=== PATIENT | female | born 1940 | race Caucasian/White ===

== ENCOUNTER 2018-08-22 11:40 | Inpatient (IN) ==
[2018-08-22 12:22] LABS: BASO# 0.02 X1000 (0.0-0.2); BASO% 0.2 % (0.0-0.8); EOS# 0.06 X1000 (0.0-0.7); EOS% 0.5 % (0.0-10.0); HEMATOCRIT 47.6 % (37.0-47.0); HEMOGLOBIN 15.9 g/dL (12.0-16.0); IMM GRAN# 0.03 X1000 (0.0-0.04); IMM GRAN% 0.2 % (0.0-0.5); LYMPH# 1.49 X1000 (1.2-3.4); LYMPH% 11.3 % (20.5-51.1); MCH 29.6 PG (27-31); MCHC 33.4 g/dL (33-37); MCV 88.6 FL (81-99); MONO# 1.26 X1000 (0.11-0.59); MONO% 9.6 % (1.7-9.3); MPV 10.4 FL (7.4-10.4); NEUT# 10.27 X1000 (1.4-6.5); NEUT% 78.2 % (42.2-75.2); PLT 211 X1000 (130-400); RBC 5.37 XMIL (4.2-5.4); RDW 13.8 % (11.5-14.5); WBC 13.13 X1000 (4.8-10.8)
[2018-08-22 12:37] LABS: URINE SOURCE VOIDED
[2018-08-22 12:44] LABS: AGAP 13; ALB/GLOB RATIO 1.1; ALBUMIN 3.9 g/dL (3.5-5.0); ALKALINE PHOSPHATASE 101 U/L (32-104); BUN 20 mg/dL (8-22); CHLORIDE 101 mmol/L (98-107); COSMO 281; CREATININE 0.8 mg/dL (0.5-0.9); ESTIMATED GFR > 60; GLUCOSE 105 mg/dL (70-104); GOT 23 U/L (10-30); GPT 15 U/L (10-36); LIPASE 22 U/L (13-60); POTASSIUM 4.2 mmol/L (3.5-5.1); SODIUM 139 mmol/L (136-145); TCO2 25 mmol/L (25-35); TOTAL BILIRUBIN 0.83 mg/dL (0.20-1.00); TOTAL PROTEIN 7.6 g/dL (6.3-8.3)
[2018-08-22 12:49] LABS: BILIRUBIN URINE NEGATIVE (NEGATIVE); BLOOD URINE TRACE (NEGATIVE); COLOR YELLOW; GLUCOSE URINE NEGATIVE (NEGATIVE); KETONE URINE NEGATIVE (NEGATIVE); LEUKOCYTES URINE NEGATIVE (NEGATIVE); NITRITE URINE NEGATIVE (NEGATIVE); PROTEIN URINE NEGATIVE (NEGATIVE); SP GRAVITY URINE 1.022; TURBIDITY URINE CLEAR (CLEAR); UROBILINOGEN URINE NORMAL (NORMAL)
[2018-08-22 13:08] LABS: INR 0.95; PROTIME 13.4 Seconds (11.0-16.0)
[2018-08-22 13:09] LABS: PTT 38.1 Seconds (22.3-41.8)
[2018-08-22 13:22] LABS: UR EPITHELIAL CELLS <10 /HPF (<10); URINE BACTERIA NEGATIVE /HPF; URINE RBC <10 /HPF (<10); URINE WBC <10 /HPF (<10)
[2018-08-22 13:39] LABS: URINE YEAST PRESENT
--- NOTE | 2018-08-22 13:42 | Diag Imaging Result Doc PS360 ---
CHEST-1 VIEW - 08/22/2018 INDICATION: sepsis protocol COMPARISON: 06/20/2014 FINDINGS: Lung volumes are much lower. No focal infiltrates, pneumothorax, or pleural effusion. Heart size is normal. IMPRESSION: Low lung volumes. Electronically signed by Mynor Figueroa 08/22/2018 1:40 PM
--- NOTE | 2018-08-22 13:49 | Diag Imaging Result Doc PS360 ---
EXAM: CT ABD/PELVIS W/IV CONT ONLY INDICATION: abdominal pain TECHNIQUE: This exam was performed using automated exposure control, adjustment of mA or kV according to patient size, and/or use of iterative reconstruction technique. COMPARISON: None. FINDINGS: There is mild subsegmental atelectasis at the lung bases. There has been a prior cholecystectomy. The liver, spleen, pancreas, and adrenal glands are grossly unremarkable. There are a few parapelvic renal cysts on the left. The kidneys are unremarkable, otherwise. The urinary bladder is unremarkable. There has been a prior hysterectomy. There is extensive sigmoid colonic diverticulosis and there is focal wall thickening with surrounding inflammatory changes associated with the proximal sigmoid colon emanating from a prominent diverticulum consistent with acute diverticulitis. There is no free abdominal gas or pericolonic abscess to indicate perforation. There is a prominent hiatal hernia. The remainder of the GI tract is unremarkable. IMPRESSION: Sigmoid colonic diverticulitis as described with no evidence of perforation. Electronically signed by Godfrey Dos Santos 08/22/2018 1:47 PM
--- NOTE | 2018-08-22 14:40 | PROVIDER DOCUMENTATION ---
This chart was entered by Liv Vega Scribe, acting as scribe for Terrence Chambers MD. HPI-Abdominal Pain/GI Problem - General Chief Complaint: Abdominal Pain Stated Complaint: ABDOMINAL CRAMPING Time Seen by Provider: 08/22/18 12:17 Source: patient, family () Allergies/Adverse Reactions: Patient Allergies Allergy/AdvReac Type Severity Reaction Status Date / Time codeine Allergy NAUSEA/VOMI Verified 08/22/18 12:10 TING Home Medications: Home Medication List Medication Instructions Recorded Confirmed Last Taken Type Levothyroxine [Synthroid] 11/20/13 06/20/14 11/19/13 History Olmesartan Medoxomil [Benicar] 11/20/13 06/20/14 11/20/13 History ROSUVAstatin [Crestor] 10 mg PO QHS 11/20/13 06/20/14 11/19/13 History Tramadol [Ultram] 50 mg PO Q6H PRN PRN #20 tablet 11/20/13 06/20/14 Unknown Rx Albuterol [Albuterol Neb] 06/20/14 06/20/14 Unknown History Atorvastatin Calcium [Lipitor] 10 mg PO 06/20/14 06/20/14 Unknown History Brompheniram/Phenylephrine/Dm 5 ml PO 4XDAY PRN PRN #2 solution 06/20/14 Unknown Rx [Rynex Dm Liquid] Fluconazole [Diflucan] 150 mg PO DAILY #5 tablet 06/20/14 Unknown Rx Ketoconazole 2% Cream [Nizoral 2% 1 applicatn TOP BID #1 tube 06/20/14 Unknown Rx Cream] - History of Present Illness-ABD Nature of Presenting Problems: 77 yowf presents to the ed via pov by . pt c/o intermittent abdominal cramping onset last evening. pt on exam denies any pain at that time. is at bedside and pt smells strongly of urine. pt sts she has frequent UTI Abdominal Pain Onset Location: reports: periumbilical Pain Radiation: reports: no radiation Quality of Pain: reports: aching, cramping Severity in ED: reports: moderate Onset/Duration: reports: last night Timing: reports: gone now, intermittent Activities at Onset: reports: light activity Exposure to sick contacts?: No Modifying Factors: improves with: nothing. worse with: palpation Associated Symptoms: reports: diarrhea. denies: arm pain, back/neck pain, chest pain, cough, fever/chills, nausea, shortness of breath, vomiting Last BM: last night Dark Stools Present?: reports: none noticed Rectal Bleeding: reports: none # of Diarrhea Episodes: 2 Rectal Pain: reports: none # of Vomiting Episodes: 0 Emesis Description: reports: none Bruising or Bleeding Gums?: No Similar Symptoms Previously?: Yes (UTI) Recently seen or treated by another doctor?: No Review of Systems - Adult - REVIEW OF SYSTEMS - ADULT Constitutional: denies: chills, fever Eyes: reports: no symptoms reported Ears, Nose, Mouth & Throat: reports: no symptoms reported Cardiovascular: denies: chest pain, palpitations Respiratory: denies: cough, shortness of breath, wheezing Gastrointestinal: reports: see HPI, abdominal pain, diarrhea. denies: nausea, vomiting Genitourinary: reports: see HPI, frequent UTI's, other (strong urine smell) Musculoskeletal: denies: back pain, neck pain Integumentary: reports: no symptoms reported Neurological: reports: no symptoms reported Psychiatric: reports: no symptoms reported Endocrine: reports: no symptoms reported Hematologic/Lymphatic: reports: no symptoms reported Allergic/Immunologic: reports: no symptoms reported All Other Systems: Reviewed and Negative Past History - Adult - PAST MEDICAL HISTORY-ADULT Review of Records: reports: Old Records Reviewed, Nursing Assessment Review, Medications Reviewed, Social history reviewed & non-contributory. Major Childhood Illnesses: reports: denies history Cardiovascular: reports: HTN, hyperlipidemia Respiratory: reports: denies history Gastrointestinal: reports: denies history Obstetrical/Gynecological: reports: denies history Genitourinary: reports: chronic UTI's Musculoskeletal: reports: arthritis, chronic pain Hand Dominance: Right Handed Neurological: reports: dementia Psychiatric: reports: denies history Endocrine/Immune: reports: thyroid disorder Other Conditions: reports: denies history - PRIOR SURGERIES/PROCEDURES Surgical/Procedure History: reports: cholecystectomy, hysterectomy, orthopedic (extremity) - IMMUNIZATION STATUS Childhood Immunizations: See Nurse Assessment Flu Vaccine: See Nurse Assessment - FAMILY HISTORY Family History: reviewed, not pertinent - SOCIAL HISTORY Smoking: non-smoker Substance Use: denies Alcohol Use Frequency: never Living Situation: family Physical Exam-General - PHYSICAL EXAM-ADULT Initial Vital Signs Reviewed: Yes - CONSTITUTIONAL General Appearance: alert, no apparent distress (pt denies pain on exam but winces with deep palpation of midabdomen), obese - EYES Eyes: PERRL/EOMI, pink conjunctivae - HEAD, EARS, NOSE, MOUTH & THROAT HENMT: moist mucous membranes, normal ENT inspection - NECK Neck: non-tender, full range of motion, supple, normal inspection - RESPIRATORY Respiratory: chest non-tender, lungs clear, normal breath sounds - CARDIOVASCULAR Cardiovascular: normal peripheral pulses, regular rate, rhythm - GASTROINTESTINAL (ABDOMEN) Abdominal Exam: normal bowel sounds, soft, tenderness (midabdominal tenderness with deep palpation) - LYMPHATIC Lymphatic: no adenopathy - MUSCULOSKELETAL Back Exam: normal inspection Extremity: no pedal edema, no calf tenderness, normal capillary refill, pelvis stable - SKIN Integumentary: normal color, normal turgor, warm/dry - NEUROLOGIC Neurologic: grossly normal - PSYCHIATRIC Psych/Mental Status: normal mood/affect, normal thought content, normal thought process Progress - PLAN OF CARE/RESULTS Progress/Plan/Lab Results: Vital Signs - 8 hr 08/22/18 11:44 Pulse Rate 95 H Respiratory Rate 18 Blood Pressure 123/83 Laboratory Results - last 24 hr 08/22/18 11:56 WBC 13.13 H RBC 5.37 Hgb 15.9 Hct 47.6 H MCV 88.6 MCH 29.6 MCHC 33.4 RDW Std Deviation 13.8 Plt Count 211 MPV 10.4 Immature Gran % (Auto) 0.2 Neut % (Auto) 78.2 H Lymph % (Auto) 11.3 L [place] % (Auto) 9.6 H Eos % (Auto) 0.5 Baso % (Auto) 0.2 Immature Gran # (Auto) 0.03 Neut # (Auto) 10.27 H Lymph # (Auto) 1.49 [place] # (Auto) 1.26 H Eos # (Auto) 0.06 Baso # (Auto) 0.02 Orders Category Date Time Status NPO Diet 08/22/18 11:50 Active CBC WITH DIFF [HEME] Stat Lab 08/22/18 11:56 Completed COMPREHENSIVE METABOLIC PANEL [CHEM] Stat Lab 08/22/18 11:56 Received LIPASE [CHEM] Stat Lab 08/22/18 11:56 Received URINALYSIS [URINALYSIS] Stat Lab 08/22/18 11:50 Uncollected Abd Pain/OB <20 weeks Stat Oth 08/22/18 11:49 Ordered Result Diagrams: 08/22/18 11:56 08/22/18 11:56 - REASSESSMENT Reassessment #1 Time Reassessed: 13:01 Status: improving Reassessment Comment: dr chambers at bedside Reassessment #2 Time Reassessed: 14:37 Status: unchanged Reassessment Comment: dr chambers at bedside speaking with pt about poc - XRAY 1 XRAY: Bilateral XRAY Study: Chest Impression: See EMR Report (CHEST-1 VIEW - 08/22/2018 INDICATION: sepsis protocol COMPARISON: 06/20/2014 FINDINGS: Lung volumes are much lower. No focal infiltrates, pneumothorax, or pleural effusion. Heart size is normal. IMPRESSION: Low lung volumes. Electronically signed by Mynor Figueroa 08/22 1:40 PM 08/22/18 1340 Interpreting Physician: Mynor Figueroa MD Dictated Date/Time: 08/22/18 1334 cc: Terrence Chambers MD; Lisa Garsia MD) - CT/MRI 1 CT Study: Abdomen, Pelvis Impression: See EMR Report (EXAM: CT ABD/PELVIS W/IV CONT ONLY INDICATION: abdominal pain TECHNIQUE: This exam was performed using automated exposure control, adjustment of mA or kV according to patient size, and/or use of iterative reconstruction technique. COMPARISON: None. FINDINGS: There is mild subsegmental atelectasis at the lung bases. There has been a prior cholecystectomy. The liver, spleen, pancreas, and adrenal glands are grossly unremarkable. There are a few parapelvic renal cysts on the left. The kidneys are unremarkable, otherwise. The urinary bladder is unremarkable. There has been a prior hysterectomy. There is extensive sigmoid colonic diverticulosis and there is focal wall thickening with surrounding inflammatory changes associated with the proximal sigmoid colon emanating from a prominent diverticulum consistent with acute diverticulitis. There is no free abdominal gas or kurt lonic abscess to indicate perforation. There is a prominent hiatal hernia. The remainder of the GI tract is unremarkable. IMPRESSION: Sigmoid colonic diverticulitis as described with no evidence of perforation. Electronically signed by Godfrey Dos Santos 08/22/2018 1:47 PM 08/22/18 1347 Interpreting Physician: Godfrey Dos Santos MD Dictated Date/Time: 08/22/18 1336 cc: Terrence Chambers MD; Lisa Garsia MD) - CONSULTS/PCP/HOSPITALIST Notification #1 *Consult/PCP/Hospitalist*: hospitalist dr [place]ura Time Discussed: 14:42 (spoke with reuben FOLEY with hospitalist service) Consult Disposition: Admit Departure - Departure Date of Disposition Decision: 08/22/18 Time of Disposition Decision: 14:37 DIAGNOSIS: Acute diverticulitis Disposition: ADMITTED INPATIENT 09 Certified Medical Emergency: Emergent Condition: Stable Additional Freetext Instructions: ED Follow Up Instructions: You have been treated by a care provider in the Emergency Department. These instructions are being provided to you so you can have an understanding of how to care for yourself upon discharge. Upon discharge from the Emergency Department, you are responsible for making arrangements for follow-up care by a physician of your choice. Take all prescribed medications as directed. Return to the Emergency Department immediately for any new or worsening symptoms. You may call the Physician Referral phone number at [phone] to obtain a list of Physicians who are taking new patients. Referrals and Follow-Ups: Lisa Garsia MD [Primary Care Provider] - - Critical Care Note This patient required my direct & personal management of CC.: Yes Total Time (mins): 35 Critical Care Statement: This patient required my direct personal management to treat or rule out processes, the absence of which, could potentiallly result in sudden, clinically significant life or limb threatening deterioration. Attestation - Physician/ MELISSA Attestation Patient care was provided by Advanced Practice Provider:: No The physician spent face to face time with patient:: Yes Advanced Practice Provider documentation review:: Supervising physician onsite and consulted in the evaluation and care of this patient. The physician did have a face to face encounter with the patient. This chart was documented by the indicated scribe, (Liv Vega Scribe) and accurately reflects the services I performed and decisions made by me, Terrence Chambers MD, as attested by the provider's signature.
[2018-08-22] MEDS ORDERED: NS 1,000 ML IV ONE (15:04)
[2018-08-22] MEDS: PROTONIX IV SCH (15:20)
[2018-08-22] MEDS: FLAGYL 500 MG/NS 500 MG/100 ML IVPB IV SCH ×2 (15:25→21:44)
[2018-08-22] MEDS ORDERED: MORPHINE IV PRN (15:36)
--- NOTE | 2018-08-22 16:05 | HISTORY AND PHYSICAL ---
PRIMARY CARE PROVIDER: Lisa Garsia MD CHIEF COMPLAINT: Abdominal pain. HISTORY OF PRESENT ILLNESS: Ms. Florez is a 77-year-old female with a medical history of hypertension and probable dementia who presents with acute abdominal pain that began last night. She is a poor historian, her at the bedside is also a poor historian but apparently she started having left lower quadrant pain last night which was nonradiating and constant, sharp in nature. This has not been associated with fever, chills, nausea, vomiting, or diarrhea. She came to the E.R. this morning for evaluation. She was noted to have a white count of 13,000. Chemistry was unremarkable. CT of the abdomen and pelvis revealed a focal sigmoid colonic diverticulitis with no evidence of perforation. Her vital signs are stable. She will be admitted for further treatment and evaluation. PAST MEDICAL HISTORY: 1. Hypertension. 2. Hypothyroidism. 3. Hyperlipidemia. SURGICAL HISTORY: Cholecystectomy, hysterectomy, right knee replacement, and foot surgery. SOCIAL HISTORY: No tobacco, alcohol, or drug use. She is . Her is at the bedside. FAMILY HISTORY: Noncontributory. REVIEW OF SYSTEMS: A 14 point review of systems was obtained and found to be negative with the exception of the HPI. ALLERGIES: Codeine. HOME MEDICATIONS: Her home medications are yet to be compiled. PHYSICAL EXAMINATION: VITAL SIGNS: Blood pressure is 141/73, heart rate 75, respiratory rate 16, O2 sat 97% on room air, and temperature 97.5. GENERAL: Elderly and obese female lying in a hospital bed in no acute distress. NEUROLOGIC: She is awake and alert, however, she is disoriented to time and place. She follows commands without focal deficits. HEENT: The head is atraumatic and normocephalic. Her pupils are equal, round, and reactive to light. Oral mucosa is dry. NECK: Trachea is midline. There is no JVD. CHEST: Clear to auscultation. CV: Regular rate and rhythm. S1, S2 is noted. There are no murmurs. GI: Soft and nondistended. Focal left lower quadrant tenderness. Bowel sounds are active. EXTREMITIES: Without edema, clubbing, or cyanosis. Pulses are 1+ bilaterally. DIAGNOSTIC DATA: CT abdomen and pelvis shows sigmoid colonic diverticulitis. WBC is 13.13, hemoglobin 15.9, hematocrit 47.6, and platelet count 211. INR is 0.95. Sodium is 139, potassium 4.2, chloride 101, CO2 25, anion gap 13, BUN 20, creatinine 0.8, and glucose 105. LFTs were all normal. Troponin negative. Lactic acid is 0.8. UA is negative. ASSESSMENT AND PLAN: 1. Acute sigmoid diverticulitis: Continue IV antibiotics and IV fluids. There are no signs of perforation or systemic inflammation. If symptomatically improved in the next 24 to 48 hours she can likely go home and follow up with Gastroenterology on an outpatient basis. However, if there is any worsening, we will consult Gastroenterology while she is here. We will keep her p.o. intake light. 2. Hypertension: We will hold her medications just for a bit until she is slightly more hydrated. 3. Hypothyroidism: We will check thyroid function and continue her Synthroid once reconciled. 4. Deep vein thrombosis prophylaxis with sequential compression devices. Further recommendations to follow. Dictated by YASH Villarreal for Ronny Quintero MD cc: YASH Villarreal MD I agree with most components of history, physical assessment and plan. A separate addendum has been dictated. [facility]
[2018-08-22] MEDS: CIPRO 400 MG/D5W 400 MG/200 ML IVPB IV SCH (16:44)
--- NOTE | 2018-08-22 18:02 | HISTORY AND PHYSICAL ---
ADDENDUM: I agree with most components of history, assessment, physical, and plan. In brief, the patient is a 77 years old lady who comes in with complaints of 2 days duration of left lower quadrant abdominal pain. She did not have any nausea, vomiting, or stool abnormalities. She tells me that she has been eating peanuts a few times a day. She denies having any EGD or colonoscopy done in the past. In the emergency room, she was found to have leukocytosis, and she was having some abdominal pain so the CAT scan abdominal pelvis suggested acute diverticulitis involving sigmoid colon and so she was admitted for further management. SUBJECTIVE: At the time of my evaluation, patient is feeling significantly better, does not appear to be in any acute distress. She denies any nausea and vomiting. VITAL SIGNS: Suggest she has been afebrile with temperature of 98.5 degrees. She is not tachycardic except on presentation when her heart rate was above 95, currently heart rate of 89. She has been normotensive with blood pressure 120/70. Breathing well, 99% on room air. PHYSICAL EXAMINATION: GENERAL: Not in acute distress. HEENT: Oral cavity is moist. LUNGS: Air entry bilaterally equal. No wheeze, rhonchi or crackles. CARDIOVASCULAR: S1, S2 normal. No murmur or gallop. ABDOMEN: Soft, nontender. Active bowel sounds. EXTREMITIES: No lower extremity edema. LABORATORY DATA: Suggestive of leukocytosis, otherwise it appears unremarkable. MICROBIOLOGY: Blood cultures are in lab. IMAGING: Abdomen and pelvis CT had suggested acute sigmoid diverticulitis. Chest x-ray was unremarkable except low lung volumes. ASSESSMENT: 1. Acute sigmoid diverticulitis. 2. Medication noncompliance. 3. History of hyperlipidemia. 4. History of hypothyroidism. 5. History of suspected dementia, essential hypertension. PLAN: Continue intravenous fluids and intravenous antibiotics. Follow up with blood culture results. Continue physical therapy. Continue clear liquid diet. I anticipate the patient to remain inside the hospital for at least 24 to 48 hours depending on her clinical course. Plan of care was discussed with the patient. All of her questions have been answered. I will try and reach out to who i assume is a surrogate decision maker. cc: Ronny Quintero MD [facility]
[2018-08-22] MEDS: LIPITOR PO SCH (21:44)
[2018-08-22] MEDS: ARICEPT PO SCH (21:44)
[2018-08-23] MEDS: FLAGYL 500 MG/NS 500 MG/100 ML IVPB IV SCH ×4 (03:04→20:06)
[2018-08-23] MEDS: CIPRO 400 MG/D5W 400 MG/200 ML IVPB IV SCH ×2 (04:10→16:46)
[2018-08-23 06:55] LABS: BASO# 0.01 X1000 (0.0-0.2); BASO% 0.1 % (0.0-0.8); EOS# 0.12 X1000 (0.0-0.7); EOS% 1.3 % (0.0-10.0); HEMATOCRIT 44.9 % (37.0-47.0); HEMOGLOBIN 14.9 g/dL (12.0-16.0); IMM GRAN# 0.02 X1000 (0.0-0.04); IMM GRAN% 0.2 % (0.0-0.5); LYMPH# 1.33 X1000 (1.2-3.4); LYMPH% 14.9 % (20.5-51.1); MCH 29.7 PG (27-31); MCHC 33.2 g/dL (33-37); MCV 89.4 FL (81-99); MONO# 0.94 X1000 (0.11-0.59); MONO% 10.5 % (1.7-9.3); NEUT# 6.51 X1000 (1.4-6.5); PLT 185 X1000 (130-400); RBC 5.02 XMIL (4.2-5.4); RDW 13.6 % (11.5-14.5); WBC 8.93 X1000 (4.8-10.8)
[2018-08-23 07:26] LABS: ALBUMIN 3.3 g/dL (3.5-5.0); CALCIUM 9.3 mg/dL (8.8-10.2); MAGNESIUM 1.8 mg/dL (1.5-2.7); POTASSIUM 4.5 mmol/L (3.5-5.1); TOTAL BILIRUBIN 0.94 mg/dL (0.20-1.00); TOTAL PROTEIN 6.6 g/dL (6.3-8.3)
[2018-08-23] MEDS: ASPIRIN PO SCH (08:52)
[2018-08-23] MEDS: SYNTHROID PO SCH (08:52)
[2018-08-23] MEDS: NAMENDA PO SCH (08:52)
[2018-08-23] MEDS ORDERED: COZAAR PO SCH (09:00)
[2018-08-23] MEDS ORDERED: MORPHINE IV PRN (14:15)
--- NOTE | 2018-08-23 14:57 | PROGRESS NOTE ---
DATE: 08/23/2018 INTERVAL HISTORY: No acute event overnight. Patient has been eating some food. She had a bowel movement which looked normal. SUBJECTIVE: Patient is denying chest pain, shortness of breath. She is denying any nausea, vomiting or any more abdominal pain except for mild pain in left lower quadrant. I discussed about advancing her diet, answered all of her questions. Currently vitals temperature 97.6 degrees, pulse 64, respiratory rate 18, blood pressure of 111/47, saturating 100% room air. PHYSICAL EXAMINATION: General: Does not appear in any acute distress. Oral cavity is moist. Air entry bilaterally equal. No wheeze, rhonchi, crackles. S1, S2 normal. No murmur, rub or gallop. Abdomen: Soft, mildly tender in left lower quadrant. No hepatosplenomegaly and active bowel sounds. No lower extremity edema. LABS: Suggestive of resolution of leukocytosis, normal hemoglobin, hematocrit, and platelet count, normal electrolytes, what appears to be elevated creatinine and her TSH was slightly elevated. ASSESSMENT AND PLAN: 1. Acute sigmoid diverticulitis. Continue intravenous metronidazole and ciprofloxacin. 2. Sigmoid diverticulosis actively not bleeding at the moment. Patient was advised to follow up ob gyn as an outpatient and discuss about need for post colitis colonoscopy. 3. History of hypothyroidism, continue home levothyroxine, history of hypertension, continue home losartan. I will decrease the dose considering her blood pressure is a little low. 4. history of Alzheimer's dementia, continue home memantine and donepezil. Her baseline functional status is alert, oriented to place, person and year. She is able to walk using a walker and prepare small meals for herself, though, she does have intermittent memory impairment. 5. Others:, history of hyperlipidemia. Continue home atorvastatin, for abdominal pain continue low dose of morphine as needed. DISPOSITION: The patient remains inside the hospital as I would monitor her for 24 hours until resolution of her abdominal pain and if she is able to tolerate soft diet tomorrow my plan is to discharge her home tomorrow. Plan of care discussed with the patient. The patient's is a surrogate decision maker at bedside, all of their questions have been answered. cc: MD IRENE Baptiste
[2018-08-23] MEDS: SODIUM CHLORIDE 0.9% INJ SCH (16:47)
[2018-08-23] MEDS: PROTONIX IV SCH (16:47)
[2018-08-23] MEDS: LIPITOR PO SCH (20:06)
[2018-08-23] MEDS: ARICEPT PO SCH (20:06)
[2018-08-24] MEDS: CIPRO 400 MG/D5W 400 MG/200 ML IVPB IV SCH ×2 (04:06→17:12)
[2018-08-24] MEDS: FLAGYL 500 MG/NS 500 MG/100 ML IVPB IV SCH ×4 (04:06→19:53)
[2018-08-24 07:13] LABS: BASO# 0.02 X1000 (0.0-0.2); BASO% 0.2 % (0.0-0.8); EOS# 0.11 X1000 (0.0-0.7); EOS% 1.3 % (0.0-10.0); HEMATOCRIT 42.8 % (37.0-47.0); HEMOGLOBIN 14.2 g/dL (12.0-16.0); LYMPH# 1.08 X1000 (1.2-3.4); LYMPH% 12.5 % (20.5-51.1); MCH 29.8 PG (27-31); MCHC 33.2 g/dL (33-37); MCV 89.9 FL (81-99); MONO# 0.82 X1000 (0.11-0.59); MONO% 9.5 % (1.7-9.3); MPV 10.2 FL (7.4-10.4); NEUT# 6.59 X1000 (1.4-6.5); NEUT% 76.5 % (42.2-75.2); PLT 202 X1000 (130-400); RBC 4.76 XMIL (4.2-5.4); RDW 13.6 % (11.5-14.5); WBC 8.62 X1000 (4.8-10.8)
[2018-08-24 07:34] LABS: AGAP 13; ALB/GLOB RATIO 0.9; ALBUMIN 3.1 g/dL (3.5-5.0); ALKALINE PHOSPHATASE 87 U/L (32-104); BUN 14 mg/dL (8-22); CALCIUM 8.8 mg/dL (8.8-10.2); CHLORIDE 105 mmol/L (98-107); COSMO 280; CREATININE 0.8 mg/dL (0.5-0.9); ESTIMATED GFR > 60; GLUCOSE 105 mg/dL (70-104); GOT 15 U/L (10-30); GPT 10 U/L (10-36); SODIUM 140 mmol/L (136-145); TCO2 22 mmol/L (25-35); TOTAL BILIRUBIN 0.53 mg/dL (0.20-1.00); TOTAL PROTEIN 6.5 g/dL (6.3-8.3)
[2018-08-24] MEDS: ASPIRIN PO SCH (09:45)
[2018-08-24] MEDS: NAMENDA PO SCH (09:45)
[2018-08-24] MEDS: COZAAR PO SCH (09:45)
[2018-08-24] MEDS: SYNTHROID PO SCH (09:45)
[2018-08-24] MEDS ORDERED: ZOFRAN IV PRN (09:56)
--- NOTE | 2018-08-24 15:03 | PROGRESS NOTE ---
DATE: 08/24/2018 INTERVAL HISTORY: No acute events overnight. I was informed that the patient had not eaten a lot yesterday. She has not eaten anything since morning. She is complaining of nausea for which Zofran has been ordered. SUBJECTIVE: When I went to the bedside, the patient's is at bedside. I discussed with the patient about her condition and also the fact that her diverticulitis is being treated with intravenous antibiotics and she needs to eat to see if she is progressing well or not. After discussion with the patient and her at bedside, getting an idea about her baseline functional status, I suggested to them that the patient might benefit from going to rehab, and they are in agreement with this idea. I encouraged patient to take oral food as well currently. VITALS: Temperature 98.4, pulse 65, respiratory rate 16, blood pressure 123/47. Saturating 99% on room air. PHYSICAL EXAMINATION: Patient does not appear in any acute distress. Oral cavity is moist.Lungs: Air entry bilaterally equal. No wheeze, rhonchi or crackles. Cardiovascular: S1, S2 normal. No murmur, rub or gallop. Abdomen: Soft, nontender. No hepatosplenomegaly. No active bowel sounds. No lower extremity edema. LABS: Suggestive of no leukocytosis. Normal hemoglobin, hematocrit and platelet count. Normal electrolytes and normal kidney function. ASSESSMENT AND PLAN: 1. Acute sigmoid diverticulitis. Continue intravenous metronidazole and ciprofloxacin. Continue GI soft diet. 2. Sigmoid diverticulosis, not without any signs of anemia. The patient should follow up with [facility] as an outpatient to discuss about need for post colitis colonoscopy. 3. Hypothyroidism. Continue home levothyroxine, continue home losartan for hypertension. Currently, her blood pressure is better controlled on losartan dose. 4. History of Alzheimer's dementia. Continue home memantine and donepezil. The patient, however, does not like her to mention about dementia to other individuals since the patient believes she does not have dementia. However, during my encounter, I have noted she does have intermittent memory impairment. She, though, is alert, oriented to time, oriented to person, oriented to year, but she oftentimes forgets the past events like today she was not able to remember why she was brought to the hospital. 5. Continue home atorvastatin for hyperlipidemia. DISPOSITION: The patient has not been able to come out of bed during this hospital admission. She has become weak. After discussion with patient's and assessing patient's functional status, we decided that she would benefit from rehab. Social work rehab consult has been placed. From there I suggested that the should consider placing patient in a long-term care facility, which he is in agreement with. Plan of care was discussed with her. All of her questions have been answered, with patient and her . cc: Ronny Quintero MD
[2018-08-24] MEDS: PROTONIX IV SCH (15:24)
[2018-08-24] MEDS: ARICEPT PO SCH (20:00)
[2018-08-24] MEDS: LIPITOR PO SCH (20:00)
[2018-08-25] MEDS: FLAGYL 500 MG/NS 500 MG/100 ML IVPB IV SCH ×2 (02:50→08:54)
[2018-08-25] MEDS: CIPRO 400 MG/D5W 400 MG/200 ML IVPB IV SCH (03:00)
[2018-08-25] MEDS: COZAAR PO SCH (08:54)
[2018-08-25] MEDS: NAMENDA PO SCH (08:54)
[2018-08-25] MEDS: SYNTHROID PO SCH (08:54)
[2018-08-25] MEDS: ASPIRIN PO SCH (08:54)
--- NOTE | 2018-08-25 12:25 | PROGRESS NOTE ---
DATE: 08/25/2018 INTERVAL HISTORY: Patient was able to eat. She tells me she also had a bowel movement. She denies any abdominal pain, nausea, or vomiting. She did have nausea yesterday for which she received a dose of Zofran and she was feeling fine. is at bedside. The plan of going to the rehab whenever a bed becomes available discussed with the patient and . They are in agreement currently. OBJECTIVE: Vitals: Temperature 97.9 degrees, pulse 65, respiratory rate 18, blood pressure 130/71, saturating 97% on room air. General: Patient does not appear in any acute distress. Oral cavity: Moist. Lungs: Air entry bilaterally equal. No wheeze, rhonchi, crackle. Cardiac: S1, S2 normal. No murmur, rub or gallop. Abdomen: Soft, nontender. No hepatosplenomegaly. Active bowel sounds. Extremities: No lower extremity edema. Neurologic: The patient is alert. She is oriented to this place, herself, to me and answers all simple questions and follows commands. LABORATORIES: No new laboratories today. No new microbiological data. ASSESSMENT AND PLAN: 1. Acute sigmoid diverticulitis. 2. Sigmoid diverticulosis without any signs of bleeding or anemia. 3. History of hypothyroidism. 4. History of Alzheimer's dementia. 5. Hyperlipidemia. PLAN: To change intravenous antibiotics to p.o. and current diet. Follow up with Gastroenterology as an outpatient. Continue home levothyroxine and losartan for hypertension. Continue her home dementia medication. Social work, rehab consults have been placed. The patient is likely to go to rehab whenever a bed becomes available. cc: Ronny Quintero MD
--- NOTE | 2018-08-25 14:21 | DISCHARGE SUMMARY ---
ADMISSION DATE: 08/22/2018 DISCHARGE DATE: ADMISSION DIAGNOSES: 1. Acute sigmoid diverticulitis. 2. Hypertension. 3. Hypothyroidism. DISCHARGE DIAGNOSES: 1. Acute sigmoid diverticulitis improving with antibiotics. 2. Sigmoid diverticulosis without any signs of bleeding or anemia. 3. Hypothyroidism, 4. Alzheimer's dementia. 5. Hyperlipidemia. 6. Weakness, started on physical therapy. CONSULTATIONS: None. SURGERIES OR PROCEDURES: None. HOSPITAL COURSE: On 08/22/2018, Ms. Lisa Florez, a 77-year-old female, who lives at home with a medical history of dementia and hypertension presented with acute abdominal pain that had begun the night before. She was a significantly poor historian and her at the bedside was also a poor historian. The abdominal pain was located in the left lower quadrant, nonradiating, constant and sharp in nature. There was no fever, chills, nausea, vomiting, or diarrhea. She did have a small elevated white count, which was 13,000. The remainder of chemistry was unremarkable. The CT scan of the abdominopelvic area revealed that she had a focal sigmoid colonic diverticulitis without evidence of perforation. She was admitted and started on IV antibiotic therapy which included IV Cipro and IV Flagyl. These were transitioned to oral, so she could go to a rehab facility and she is going to be continued for an additional three days of p.o. Flagyl and Cipro. She was initially started on a clear liquid diet and advanced to a GI soft diet. During her stay, it was noted that she had become increasingly weaker. She was evaluated by Physical Therapy and is appropriate for sending to rehabilitation. DISCHARGE VITAL SIGNS: Remain stable. Temperature 97.9, heart rate 65, respiratory rate 18, blood pressure 133/71, O2 saturation 97% on room air. DISCHARGE LAB DATA: White blood cell count dropped to 8000 and remained there. She had blood cultures that were obtained that were negative. On 08/24/2018, white blood cell count 8000, hemoglobin 14, hematocrit 42, platelet count 202,000. Sodium 140, potassium 4.0, BUN 14, creatinine 0.8, glucose 105, calcium 8.8, magnesium 1.5, bilirubin 0.53, AST 15, ALT 10, albumin 3.1. Symptoms of abdominal pain subsided. She has had a bowel movement with the last one being recorded on 08/23/2018 PERTINENT IMAGING: Chest x-ray on 08/22/2018 just showed low lung volumes, otherwise negative. Abdominopelvic CT on 08/22/2018 showed sigmoid colonic diverticulitis without perforation. DISCHARGE DIET: GI soft. Avoid corn, seeds, and nuts. DISCHARGE ACTIVITY: As tolerated with Physical Therapy. Take care to prevent falls. DISCHARGE MEDICATIONS: 1. Cipro 500 mg p.o. twice daily for three days. 2. Flagyl 500 mg p.o. every eight hours for three days. 3. Aricept 5 mg p.o. nightly. 4. Crestor 20 mg p.o. nightly. 5. Aspirin 81 mg p.o. daily. 6. Bentyl 10 mg p.o. every eight hours p.r.n. for abdominal pain. 7. Lactulose 10 mg p.o. twice daily. 8. Memantine hydrochloride 5 mg p.o. daily. 9. Synthroid 25 mcg p.o. daily. 10.Vitamin D2 50,000 units p.o. twice weekly. 11.Cozaar 25 mg p.o. daily. DISCHARGE FOLLOWUP: Primary care provider, Dr. Garsia, and experience designer, Dr. Scott. DISCHARGE INSTRUCTIONS: She came in with abdominal pain. CT scan detected diverticulitis, inflammation in your intestines, treated using antibiotics and got better, please follow up with stomach doctor in about five to seven days and discuss about need for colonoscopy. Follow up with regular doctor in seven days and discuss about this admission and medication reconciliation. If your condition changes, contact your physician and/or return to the emergency department. Changes may include, but are not limited to, shortness of breath, increased fatigue, excess bleeding, unexplained weight loss or gain, unimaginable pain, signs/symptoms of infection. DISCHARGE DISPOSITION: Rehabilitation. Dictated by YASH Wu for Ronny Quintero MD cc: YASH Wu MD ADDENDUM on 08/27/18.\ Patient denies new complaints. She will be discharged to rehab. Plan of care discussion with done and all questions answered. >30 minutes were spent in discharging this patient. [facility]
[2018-08-25] MEDS: PROTONIX IV SCH (14:54)
[2018-08-25] MEDS: FLAGYL PO SCH (17:13)
[2018-08-25] MEDS: LIPITOR PO SCH (21:12)
[2018-08-25] MEDS: CIPRO PO SCH (21:12)
[2018-08-25] MEDS: ARICEPT PO SCH (21:12)
[2018-08-26] MEDS: FLAGYL PO SCH ×3 (01:36→18:03)
[2018-08-26] MEDS: CIPRO PO SCH ×2 (10:21→20:23)
[2018-08-26] MEDS: ASPIRIN PO SCH (10:21)
[2018-08-26] MEDS: SYNTHROID PO SCH (10:21)
[2018-08-26] MEDS: COZAAR PO SCH (10:21)
[2018-08-26] MEDS: NAMENDA PO SCH (10:22)
--- NOTE | 2018-08-26 16:02 | PROGRESS NOTE ---
DATE: 08/26/2018 INTERVAL HISTORY: No acute events overnight. The patient states she has been eating okay, and she also had a bowel movement. In Input and Output, it is recorded that she did have a bowel movement; however, character is not recorded. The patient is sleeping in the bed, not in any acute distress currently. VITALS: Currently detect temperature 98.5 degrees, pulse 66, respiratory rate 22, blood pressure 126/71, saturating 98% on room air. PHYSICAL EXAMINATION: General: Does not appear in acute distress. Oral cavity is moist. No pallor, cyanosis, clubbing, or icterus. Air entry bilaterally equal. No wheeze, rhonchi, crackles. S1, S2 normal. No murmur, rub, gallop. Abdomen is soft, nontender. No hepatosplenomegaly. Active bowel sounds. No rebound or rigidity. No lower extremity edema. Neurologic: She is alert oriented to herself and to place and to the person. LABORATORY DATA: No CBC or BMP today. ASSESSMENT: 1. Acute sigmoid diverticulitis. 2. Sigmoid diverticulosis without any signs of bleeding or anemia. 3. History of hypothyroidism. 4. History of Alzheimer's dementia. 5. Hyperlipidemia. PLAN: 1. Continue patient on oral ciprofloxacin and metronidazole. 2. Continue patient on her home atorvastatin for hyperlipidemia, donepezil, and memantine for Alzheimer's dementia, aspirin and levothyroxine. DISPOSITION: I am awaiting insurance authorization and approval and a rehabilitation bed. Whenever that happens, the patient will be discharged to rehabilitation. I am anticipating within the next 24 to 48 hours. Plan of care discussed with the patient. All of her questions were answered. I discussed the plan with the patient's yesterday and had answered his questions. cc: Ronny Quintero MD
[2018-08-26] MEDS: PROTONIX IV SCH (18:04)
[2018-08-26] MEDS: ARICEPT PO SCH (20:22)
[2018-08-26] MEDS: LIPITOR PO SCH (20:22)
[2018-08-27] MEDS: FLAGYL PO SCH ×3 (02:06→16:35)
[2018-08-27] MEDS: CIPRO PO SCH (09:37)
[2018-08-27] MEDS: COZAAR PO SCH (09:37)
[2018-08-27] MEDS: SYNTHROID PO SCH (09:37)
[2018-08-27] MEDS: ASPIRIN PO SCH (09:37)
[2018-08-27] MEDS: NAMENDA PO SCH (09:37)
--- NOTE | 2018-08-27 15:45 | PROGRESS NOTE ---
DATE: 08/27/2018 INTERVAL HISTORY: No acute events. SUBJECTIVE: She is feeling fine. She had chicken in her lunch today. She denies any nausea, vomiting, abdominal pain. She had a bowel movement. The patient is not in any acute distress. VITALS: Temperature 97.3 degrees, pulse 66, respiratory rate 20, blood pressure 127/68, saturating 98% room air. PHYSICAL EXAMINATION: Not in acute distress. Oral cavity is moist. Air entry bilaterally equal. No wheeze, rhonchi, crackles. S1, S2 normal. No murmur or gallop. Abdomen is soft, nontender. No lower extremity edema. Neurological: Alert and oriented x3. ASSESSMENT AND PLAN: 1. Acute sigmoid diverticulitis. 2. Sigmoid diverticulosis. 3. Hypothyroidism. 4. Alzheimer's dementia. 5. Hyperlipidemia. The patient should complete 2 more days of antibiotics at rehabilitation. Should participate in PT and OT as tolerated. Follow up with Gastroenterology as outpatient. Plan of care discussed with the patient's at bedside. All of his questions have been answered. cc: Ronny Quintero MD
[2018-08-27 16:15] VITALS: BP 108/70
[2018-08-27] MEDS: PROTONIX IV SCH (16:35)
[2018-08-27] MEDS: SODIUM CHLORIDE 0.9% INJ SCH (16:35)
== END 2018-08-27 18:30 | DRG 392 ==
LOC: ED 11:40 → 3N 15:18
PROVIDERS: ATTEND Internal Medicine
CPT/HCPCS: 71010; 71045; 74177; 80053; 81001; 82550; 83605; 83690; 83735; 84443; 84484; 85025; 85610; 85730; 87040; 96365; 96375; 97116; 97162; 97530; 99285; A9270; C9113; J0744; J2270; J2405; J7030; Q9967; S0030; S0164

== ENCOUNTER 2018-10-14 18:29 | Inpatient (IN) ==
--- NOTE | 2018-10-14 20:41 | Diag Imaging Result Doc PS360 ---
EXAM: CHEST-PORTABLE 10/14/2018 HISTORY: fall TECHNIQUE: AP portable upright at 2030 COMMENT: The inspiration is suboptimal. Compared to the previous study of 08/22/2018 there has been no appreciable change. There is a hiatal hernia. IMPRESSION: Stable chest. Electronically signed by Cristobal Pulliam 10/14/2018 8:39 PM
--- NOTE | 2018-10-14 20:41 | Diag Imaging Result Doc PS360 ---
EXAM: XRAY HIP UNILATERAL RT 10/14/2018 HISTORY: fall rt hip pain TECHNIQUE: Right hip and AP pelvis two views COMMENT: There is narrowing of the right hip joint space. There is no evidence of acute fracture or dislocation. Some osteophyte formation is present in the femoral head on the right. IMPRESSION: Degenerative arthritis on the right. Electronically signed by Cristobal Pulliam 10/14/2018 8:38 PM
--- NOTE | 2018-10-14 20:52 | Diag Imaging Result Doc PS360 ---
EXAM: CT HEAD/C-SPINE W/O CONTRAST 10/14/2018 HISTORY: Fall TECHNIQUE: This exam was performed using automated exposure control, adjustment of mA or kV according to patient size, and/or use of iterative reconstruction technique. COMMENT: There is no evidence of mass effect, bleed, or abnormal extra-axial fluid collection. There are no previous studies available for comparison. The visualized paranasal sinuses are clear. The calvarium is intact. Cervical spine: There are calcifications around the anterior atlantoaxial joint. There is posterior osteophyte formation and disc space narrowing at the C3-4, C4-5, and C5-C6 levels. There is no evidence of fracture or subluxation. The facets are aligned. No prevertebral soft tissue swelling is present. IMPRESSION: No evidence of acute disease. Electronically signed by Cristobal Pulliam 10/14/2018 8:50 PM
[2018-10-14 21:23] LABS: BASO# 0.02 X1000 (0.0-0.2); BASO% 0.2 % (0.0-0.8); EOS# 0.02 X1000 (0.0-0.7); EOS% 0.2 % (0.0-10.0); HEMATOCRIT 44.6 % (37.0-47.0); HEMOGLOBIN 15.3 g/dL (12.0-16.0); IMM GRAN# 0.03 X1000 (0.0-0.04); IMM GRAN% 0.3 % (0.0-0.5); LYMPH# 0.75 X1000 (1.2-3.4); LYMPH% 6.5 % (20.5-51.1); MCH 30.1 PG (27-31); MCHC 34.3 g/dL (33-37); MCV 87.6 FL (81-99); MONO% 8.7 % (1.7-9.3); MPV 10.3 FL (7.4-10.4); NEUT# 9.73 X1000 (1.4-6.5); NEUT% 84.1 % (42.2-75.2); PLT 212 X1000 (130-400); RBC 5.09 XMIL (4.2-5.4); RDW 14.8 % (11.5-14.5); WBC 11.55 X1000 (4.8-10.8)
[2018-10-14 21:31] LABS: URINE SOURCE CLEAN CATCH
[2018-10-14 21:35] LABS: BILIRUBIN URINE NEGATIVE (NEGATIVE); BLOOD URINE SMALL (NEGATIVE); COLOR YELLOW; GLUCOSE URINE NEGATIVE (NEGATIVE); KETONE URINE 40 mg/dL (NEGATIVE); LEUKOCYTES URINE MODERATE (NEGATIVE); NITRITE URINE POSITIVE (NEGATIVE); PROTEIN URINE NEGATIVE (NEGATIVE); SP GRAVITY URINE 1.016; TURBIDITY URINE HAZY (CLEAR); UROBILINOGEN URINE NORMAL (NORMAL)
[2018-10-14 21:36] LABS: UR EPITHELIAL CELLS <10 /HPF (<10); URINE BACTERIA 4+ /HPF; URINE RBC <10 /HPF (<10); URINE WBC 20-40 /HPF (<10)
[2018-10-14 21:45] LABS: AGAP 15; ALB/GLOB RATIO 1.2; ALBUMIN 3.8 g/dL (3.5-5.0); ALKALINE PHOSPHATASE 109 U/L (32-104); BUN 15 mg/dL (8-22); CALCIUM 9.6 mg/dL (8.8-10.2); CHLORIDE 101 mmol/L (98-107); COSMO 279; CREATININE 0.8 mg/dL (0.5-0.9); ESTIMATED GFR > 60; GLUCOSE 114 mg/dL (70-104); GOT 17 U/L (10-30); GPT 9 U/L (10-36); POTASSIUM 4.1 mmol/L (3.5-5.1); SODIUM 139 mmol/L (136-145); TCO2 23 mmol/L (25-35); TOTAL BILIRUBIN 0.82 mg/dL (0.20-1.00); TOTAL PROTEIN 7.1 g/dL (6.3-8.3)
[2018-10-14] MEDS ORDERED: ROCEPHIN IM ONE (21:47)
[2018-10-14] MEDS ORDERED: XYLOCAINE-MPF 1% INJ ONE (21:47)
[2018-10-14] MEDS ORDERED: ROCEPHIN 1 GM in NS 50 ML IV ONE (22:36)
[2018-10-15] MEDS ORDERED: BENTYL PO PRN (01:14)
[2018-10-15] MEDS ORDERED: TYLENOL PO PRN (02:39)
[2018-10-15] MEDS ORDERED: ZOFRAN IV PRN (02:39)
[2018-10-15] MEDS: LOVENOX SUBQ SCH (03:36)
[2018-10-15] MEDS: SYNTHROID PO SCH (06:38)
--- NOTE | 2018-10-15 07:13 | HISTORY AND PHYSICAL ---
PRIMARY CARE PROVIDER: Dr. Garsia. CHIEF COMPLAINT: Fall. HISTORY OF PRESENT ILLNESS: Ms. Florez is a 77-year-old female with a history of dementia, hypertension, hypothyroidism and hyperlipidemia. She is a poor historian. Her is at the bedside who is also somewhat of a poor historian but they stated that she was having increased weakness, difficulty ambulating and had a fall today. She had multiple x-rays and a CT of her head. She did not have anything broken or any acute disease; however, she does have a urinary tract infection. The states that he is unable to care for her at home. It seems that they have no family which can help and he would be unable to handle her at home with her inability to ambulate. She will be admitted for further evaluation and treatment. PAST MEDICAL HISTORY: See HPI. PREVIOUS SURGICAL HISTORY: 1. Cholecystectomy. 2. Hysterectomy. 3. Right knee replacement. 4. Foot surgery. SOCIAL HISTORY: . is at bedside. No alcohol, tobacco or illicit drug use. FAMILY HISTORY: Father had dementia. Mother had some sort of cancer. He was unable to tell me what kind of cancer specifically. ALLERGIES: To codeine causing an unknown reaction. HOME MEDICATIONS: 1. Aspirin 81 mg one p.o. daily. 2. Dicyclomine 10 mg p.o. t.i.d. p.r.n. 3. Aricept 5 mg p.o. at bedtime. 4. Vitamin D2 50,000 units as directed. 5. Levothyroxine 25 mcg p.o. daily. 6. Memantine 5 mg p.o. daily. 7. Crestor 20 mg p.o. at bedtime. 8. Losartan 25 mg p.o. daily. REVIEW OF SYSTEMS: A 14 point review of systems attempted with the patient. She denies complaints. Pertinent positives are listed above in the HPI. PHYSICAL EXAMINATION: VITAL SIGNS: Temp 98.1 degrees, pulse 97, respirations 14, blood pressure 117/77, oxygen saturation 97% on room air. GENERAL: Pleasant 77-year-old female. She is mostly alert and oriented. She is a poor historian but she was oriented to person, place and time. HEENT: Head is atraumatic, normocephalic. Pupils equal, round and reactive to light. Extraocular eye movements are intact. Sclerae anicteric. Conjunctivae pink. Oral mucosa is moist. NECK: Supple. No JVD. No thyromegaly. Trachea is midline. No cervical lymphadenopathy. CARDIAC: S1, S2 appreciated. No murmurs, gallops, rubs. LUNGS: Clear to auscultation bilaterally. No rhonchi, wheezes, rales. Symmetric rise and fall of respirations. ABDOMEN: Soft, nondistended, nontender. Bowel sounds present in all 4 quadrants. Normoactive. No pulsatile masses. No organomegaly. EXTREMITIES: No cyanosis, clubbing or edema. 2+ pedal pulses bilaterally. GENITOURINARY: No bladder distention. Patient voids. Otherwise deferred. NEUROLOGICAL: Alert and oriented x3. No focal motor deficits. Otherwise nonfocal examination. DIAGNOSTIC DATA: Chest x-ray stable from last x-ray. Suboptimal inspiration. Hiatal hernia noted. CT of the head shows no acute intracranial process. There was disk narrowing noted in the cervical spine. No acute fracture or subluxation. Hip x-ray showed degenerative arthritis on the right. LABORATORY DATA: WBC 11.55, hemoglobin 15.3, hematocrit 44.6, platelet count 212,000. Sodium 139, potassium 4.1, chloride 101, carbon dioxide 23, BUN 15, creatinine 0.8, glucose 114. Urine is nitrate positive, leuko esterase positive, 20-40 WBCs, 4+ bacteria. ASSESSMENT AND PLAN: 1. Urinary tract infection. I will treat with Rocephin 1 gram IV q. 24 hours. 2. Increased weakness and decreased ambulatory status. We will consult case management. Patient was recently discharged from rehab. She may need additional time at rehab or possible change of living situation to a halfway facility. 3. Hypertension. Continue home medications. 4. Hyperlipidemia. Continue statin. 5. Dementia. We will continue her Namenda. 6. Hypothyroidism. Check a TSH. Continue levothyroxine. Further recommendations per patient's clinical course. Dictated by YASH Radford for Lei Tran MD cc: YASH Radford MD Akram Haggag, MD Independent exam and assessment performed by ms. Discussed the above plan of care with spouse as he can never care for his in his physical state. Pt displays some degree of mild cognitive impairment which I do believe is due to both UTI and preexisting vascular dementia. MTDD
[2018-10-15] MEDS: NAMENDA PO SCH (10:01)
[2018-10-15] MEDS: ASPIRIN PO SCH (10:01)
[2018-10-15] MEDS: COZAAR PO SCH (10:01)
--- NOTE | 2018-10-15 10:06 | EKG Report ---
Test Performed on : 10/14/2018 7:55:20 PM Test Reason : Fall Blood Pressure : / mmHG Vent. Rate : 110 BPM Atrial Rate : 110 BPM P-R Int : 164 ms QRS Dur : 076 ms QT Int : 332 ms P-R-T Axes : 044 -30 026 degrees QTc Int : 449 ms Sinus tachycardia. Left axis deviation Abnormal ECG When compared with ECG of 03-JAN-2012 11:55, No significant change was found Unconfirmed Result
--- NOTE | 2018-10-15 14:35 | PROGRESS NOTE ---
DATE: 10/15/2018 SUBJECTIVE: This morning Ms. Florez refers to be doing fairly okay. She denied any pain. I understand from her history that she has been falling multiple times. She is generally weak and her brought her in yesterday. She continues to be very confused with not very clear speech, so she is not able to give any interval history. OBJECTIVE: Vital signs: Blood pressure is 94/62, pulse is 80, respiration is 16, temperature is 98.6 degrees. General: Ms. Florez is a 77-year-old female. She is in bed. She was sleeping but was easily arousable. HEENT: Mucosa is pink, dry, anicteric, and acyanotic. Neck: Supple. Chest: Clear to auscultation. No crepitations. No rhonchi. Cardiovascular: Regular rate and rhythm. Abdomen: Soft, nontender. Extremities: No pedal edema. Distal pulses were present. LOG ROPER: Patient is drowsy but is easily arousable. She is confused. She is only oriented to person but disoriented to place and time. She will move all extremities to stimulation. LABORATORY DATA: Laboratory data from yesterday has all been reviewed. TSH this morning is 3.35. CURRENT MEDICATIONS: Have also been reviewed. ASSESSMENT: 1. Urinary tract infection. 2. Generalized weakness and deconditioning. We will get physical therapy to evaluate her. There is also a plan for rehab placement. 3. Hypothyroidism. Will continue with the levothyroxine. 4. Hypertension and dyslipidemia. We will continue with home medications. 5. Dementia. 6. Clinical volume depletion. Will start the patient on gentle IV fluids. cc: Bull Portillo MD
[2018-10-15] MEDS: NS 1,000 ML IV SCH (14:44)
--- NOTE | 2018-10-15 22:57 | PROVIDER DOCUMENTATION ---
This chart was entered by Ashleigh Dos Santos Scribe, acting as scribe for Elissa Bran MD. 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 pt sts she was walking to bathroom and fell. pt has pain rt lateral hip. denies loc, dizziness, and seizure. pt walks w/walker usually. pt sts he was outside mowing yard and came back in and didn't see pt in chair and found her in bedroom floor, he believes pt was on bedroom floor for about 1 hr. found her on her rt side. pt friend sts 10 falls in 2 yrs. pt smells of urine. Review of Systems - Adult - REVIEW OF SYSTEMS - ADULT Constitutional: reports: no symptoms reported Eyes: reports: no symptoms reported Ears, Nose, Mouth & Throat: reports: no symptoms reported Cardiovascular: reports: no symptoms reported. denies: chest pain, edema, heart murmur Respiratory: reports: no symptoms reported. denies: pleurisy, shortness of breath, wheezing Gastrointestinal: reports: no symptoms reported Genitourinary: reports: no symptoms reported Musculoskeletal: reports: see HPI, joint pain (rt hip). denies: bone pain, back pain, joint swelling Integumentary: reports: no symptoms reported Neurological: reports: see HPI, loss of balance. denies: dizziness/vertigo, headache/migraines, syncope, tremors Endocrine: reports: no symptoms reported Hematologic/Lymphatic: reports: no symptoms reported Past History - Adult - PAST MEDICAL HISTORY-ADULT Review of Records: reports: Old Records Reviewed, Nursing Assessment Review, Medications Reviewed Major Childhood Illnesses: reports: denies history Cardiovascular: reports: HTN, hyperlipidemia Respiratory: reports: denies history Gastrointestinal: reports: denies history Obstetrical/Gynecological: reports: denies history Genitourinary: reports: chronic UTI's Musculoskeletal: reports: arthritis, chronic pain Neurological: reports: dementia Psychiatric: reports: denies history Endocrine/Immune: reports: thyroid disorder Other Conditions: reports: denies history - PRIOR SURGERIES/PROCEDURES Surgical/Procedure History: reports: cholecystectomy, hysterectomy, orthopedic (extremity) - IMMUNIZATION STATUS Childhood Immunizations: See Nurse Assessment Flu Vaccine: See Nurse Assessment - FAMILY HISTORY Family History: reviewed, not pertinent - SOCIAL HISTORY Smoking: non-smoker Substance Use: none/never Physical Exam-Injury Related - Physical Exam-Injury Related Initial Vital Signs Reviewed: Yes General Appearance: alert, no apparent distress. negative: lethargic, slow to respond, obtunded Immobilization?: negative: backboard, C-collar Eyes: PERRL/EOMI, pink conjunctivae Head, Ears, Nose, Mouth & Throat: normocephalic/atraumatic, moist mucous membranes, normal ENT inspection Neck: non-tender, full range of motion, supple, normal inspection Respiratory: chest non-tender, lungs clear, normal breath sounds Cardiovascular: normal peripheral pulses, no edema, no gallop, no JVD, no murmur , tachycardia. negative: regular rate, rhythm, JVD, bradycardia Chest/Breast: deferred Peripheral Pulses: radial (R): 2+, radial (L): 2+ Abdominal Exam: normal bowel sounds, non tender, soft Back Exam: normal inspection, no CVA tenderness, no vertebral tenderness Extremity: normal range of motion, normal inspection, tenderness (lateral rt h ip). negative: non-tender, pedal edema, slow capillary refill, swelling Integumentary: normal color, warm/dry Neurologic: lubricating machine tender II-XII nml as tested, motor weakness, other (Unable to walk with walker) - Glascow Coma Score Best Eye Response (Sameer): (4) open spontaneously Best Verbal Response (Sameer): (5) oriented Best Motor Response ([place]): (6) obeys commands Sameer Total: 15 Progress - PLAN OF CARE/RESULTS Progress/Plan/Lab Results: Orders Category Date Time Status Admit - [facility] Routine AdmDCTranf 10/15/18 02:39 Active Activity - Strict Bedrest ORDERED Care 10/15/18 02:39 Active Intake and Output-Strict ORDERED Care 10/15/18 02:39 Active Straight Catheterization ORDERED Care 10/14/18 21:05 Completed Vital Signs Order Q 8-HR ASSESS Care 10/15/18 02:39 Completed Z-Document. for Tele Applied ORDERED Care 10/15/18 02:39 Active Case Management Consult Routine Cons 10/15/18 08:00 Active Heart Healthy Diet Diet 10/15/18 02:[address] HEAD/C-SPINE W/O CONTRAST [CT] Stat Exams 10/14/18 20:19 Completed XRAY HIP UNILATERAL RT [RAD] Stat Exams 10/14/18 20:18 Completed cxr [CHEST-PORTABLE] [RAD] Stat Exams 10/14/18 20:20 Completed BASIC METABOLIC PANEL [CHEM] Routine Lab 10/16/18 06:00 Ordered BLOOD CULTURE [BLDCUL] Stat Lab 10/14/18 23:00 Results CBC WITH DIFF [HEME] Routine Lab 10/16/18 06:00 Ordered CBC WITH ELECTRONIC DIFF [HEME] Stat Lab 10/14/18 21:02 Completed COMPREHENSIVE METABOLIC PANEL [CHEM] Stat Lab 10/14/18 21:02 Completed LACTATE, PLASMA [CHEM] Stat Lab 10/14/18 21:02 Completed TROPONIN T Stat Lab 10/14/18 21:02 Completed TSH Routine Lab 10/15/18 05:40 Completed URINALYSIS W/POSS RFLX CULT [URINALYSIS] Stat Lab 10/14/18 21:24 Completed URINE CULTURE [RM] Routine Lab 10/14/18 21:44 Results Acetaminophen [Tylenol] Med 10/15/18 02:39 Active 650 mg PO Q6H PRN PRN Aspirin Med 10/15/18 09:00 Active 81 mg PO DAILY CefTRIAXONE [Rocephin] Med 10/14/18 21:47 Discontinued 1 gm IM NOW ONE CefTRIAXONE [Rocephin] 1 gm Med 10/14/18 22:36 Discontinued 0.9% Sodium Chloride Inj [Ns] 50 ml IV NOW CefTRIAXONE [Rocephin] 1 gm Med 10/15/18 22:00 Active 0.9% Sodium Chloride Inj [Ns] 50 ml IV Q24H Dicyclomine [Bentyl] Med 10/15/18 01:14 Active 10 mg PO Q8H PRN PRN Donepezil [Aricept] Med 10/15/18 21:00 Active 5 mg PO QHS Enoxaparin [Lovenox] Med 10/15/18 02:39 Active 40 mg SUBQ Q24H Ergocalciferol (Vitamin D2) [Vitamin D] Med 10/15/18 01:15 Pending 50,000 unit PO ORDERED Levothyroxine [Synthroid] Med 10/15/18 07:00 Active 25 microgm PO DAILY@0700 Lidocaine 1% Pf [Xylocaine-Mpf 1%] Med 10/14/18 21:47 Discontinued 5 ml INJ NOW ONE Losartan [Cozaar] Med 10/15/18 09:00 Active 25 mg PO DAILY Memantine [Namenda] Med 10/15/18 09:00 Active 5 mg PO DAILY Ondansetron [Zofran] Med 10/15/18 02:39 Active 4 mg IV Q4H PRN PRN ROSUVAstatin [Crestor] Med 10/15/18 21:00 Active 20 mg PO QHS Telemetry [OM.EQ] Routine Oth 10/15/18 02:39 Active EKG [EKG] Stat Ther 10/14/18 20:19 Draft Transfer/Admit Order [TRANSFER] Routine Transfer 10/15/18 01:15 Completed Discuss with and hospitalist Dr. Chelsea gonzalez. said can't take care of her at home. pt is weak and has UTI. admission and further management in the hospital, likely need placement in medical facility based on inpatient assessment. Result Diagrams: 10/14/18 21:02 10/14/18 21:02 - EKG 1 Time of EKG reading by physician:: 19:55 EKG Read and Signed by:: Addy Grayson EKG Interpretation (*Must complete 3 of following elements*): Abnormal Rate: 110 Rhythm: ST [place]: left QRS: normal CA Interval: normal ST Wave: normal - XRAY 1 XRAY: Right XRAY Study: Hip ( EXAM: XRAY HIP UNILATERAL RT 10/14/2018 HISTORY: fall rt hip pain TECHNIQUE: Right hip and AP pelvis two views COMMENT: There is narrowing of the right hip joint space. There is no evidence of acute fracture or dislocation. Some osteophyte formation is present in the femoral head on the right. IMPRESSION: Degenerative arthritis on the right. Electronically signed by Cristobal Pulliam 10/14/2018 8:38 PM) Impression: Abnormal 2 XRAY: Bilateral XRAY Study: Chest ( EXAM: CHEST-PORTABLE 10/14/2018 HISTORY: fall TECHNIQUE: AP portable upright at 2030 COMMENT: The inspiration is suboptimal. Compared to the previous study of 08/22/2018 there has been no appreciable change. There is a hiatal hernia. IMPRESSION: Stable chest. Electronically signed by Cristobal Pulliam 10/14/2018 8:39 PM) Impression: Normal Comparison with other Films: no changes - CONSULTS/PCP/HOSPITALIST Notification #1 *Consult/PCP/Hospitalist*: Dr. Tran Time Discussed: 22:21 Consult Disposition: Admit (Hx, PE and pt care discussed, accepted.) Departure - Departure Date of Disposition Decision: 10/14/18 Time of Disposition Decision: 22:21 DIAGNOSIS: Weakness Fall Qualifiers: Encounter type: initial encounter Qualified Code(s): W19.XXXA - Unspecified fall, initial encounter UTI (urinary tract infection) Qualifiers: Urinary tract infection type: site unspecified Hematuria presence: without hematuria Qualified Code(s): N39.0 - Urinary tract infection, site not specified Disposition: ADMITTED INPATIENT 09 Certified Medical Emergency: Emergent Condition: Stable - Critical Care Note This patient required my direct & personal management of CC.: No Attestation - Physician/ MELISSA Attestation Patient care was provided by Advanced Practice Provider:: No The physician spent face to face time with patient:: Yes Advanced Practice Provider documentation review:: Supervising physician onsite and consulted in the evaluation and care of this patient. The physician did have a face to face encounter with the patient. This chart was documented by the indicated scribe, (Ashleigh Dos Santos, [place]) and accurately reflects the services I performed and decisions made by me, Elissa Vann MD, as attested by the provider's signature.
[2018-10-15] MEDS: ROCEPHIN 1 GM in NS 50 ML IV SCH (23:21)
[2018-10-15] MEDS: CRESTOR PO SCH (23:22)
[2018-10-15] MEDS: ARICEPT PO SCH (23:22)
[2018-10-16] MEDS: LOVENOX SUBQ SCH (04:09)
[2018-10-16] MEDS: SYNTHROID PO SCH ×2 (05:58→07:46)
[2018-10-16 06:09] LABS: BASO# 0.01 X1000 (0.0-0.2); BASO% 0.2 % (0.0-0.8); EOS# 0.14 X1000 (0.0-0.7); EOS% 2.4 % (0.0-10.0); HEMATOCRIT 38.6 % (37.0-47.0); HEMOGLOBIN 12.8 g/dL (12.0-16.0); LYMPH# 1.27 X1000 (1.2-3.4); LYMPH% 21.9 % (20.5-51.1); MCH 29.6 PG (27-31); MCHC 33.2 g/dL (33-37); MCV 89.1 FL (81-99); MONO# 0.71 X1000 (0.11-0.59); MONO% 12.3 % (1.7-9.3); MPV 10.3 FL (7.4-10.4); NEUT# 3.66 X1000 (1.4-6.5); NEUT% 63.2 % (42.2-75.2); PLT 210 X1000 (130-400); RBC 4.33 XMIL (4.2-5.4); RDW 14.5 % (11.5-14.5); WBC 5.79 X1000 (4.8-10.8)
[2018-10-16 06:36] LABS: AGAP 14; BUN 17 mg/dL (8-22); CALCIUM 8.4 mg/dL (8.8-10.2); CHLORIDE 105 mmol/L (98-107); COSMO 282; CREATININE 0.8 mg/dL (0.5-0.9); ESTIMATED GFR > 60; GLUCOSE 92 mg/dL (70-104); POTASSIUM 3.3 mmol/L (3.5-5.1); SODIUM 141 mmol/L (136-145); TCO2 22 mmol/L (25-35)
[2018-10-16] MEDS: COZAAR PO SCH (10:02)
[2018-10-16] MEDS: NAMENDA PO SCH (10:02)
[2018-10-16] MEDS: ASPIRIN PO SCH (10:02)
[2018-10-16] MEDS: NS 1,000 ML IV SCH ×2 (10:08→20:59)
[2018-10-16] MEDS ORDERED: KLOR-CON PO ONE (12:19)
--- NOTE | 2018-10-16 12:47 | PROGRESS NOTE ---
DATE: 10/16/2018 SUBJECTIVE: This morning, Ms. Florez refers to be doing a lot better. She was communicating more with me today. She is still confused. OBJECTIVE: Vital Signs: Blood pressure is 123/63, pulse 66, respirations are 16, temperature is 97.3 degrees, patient was saturating 95% on room air. General Examination: Ms. Florez is a 77- year-old, female. She was in bed. No distress. HEENT: Mucosa is pink. It is still slightly dry but it is a lot better than yesterday. Respiratory System: There is good air entry bilaterally. No crepitations. No rhonchi. Cardiovascular: Regular rate and rhythm. No murmurs, no rubs, no gallops. GI: Abdomen is soft, nontender. Bowel sounds present. Extremities: No pedal edema. Distal pulses are present. CASTING SORTER: The patient is awake and alert. Oriented to person. Disoriented to place and time. She follows, however, basic commands. Laboratory Data: WBC is down to 5.79, hemoglobin is 12.8, platelet count of 210,000. Chemistry is also reviewed. Potassium is 3.3 and that has been replaced. Microbiology data shows urine culture was positive for Klebsiella pneumoniae. ASSESSMENT: 1. Klebsiella pneumoniae urinary tract infection. The patient is on adequate antimicrobial coverage. 2. Generalized weakness and deconditioning. Physical therapy has been consulted. 3. Hypothyroidism. We are going to continue with levothyroxine. 4. Hypertension and dyslipidemia, controlled. 5. Dementia, presumably Alzheimer's. Patient is on donepezil. 6. Clinical volume depletion. We are going to continue with the gentle intravenous fluids. 7. Hypokalemia, has been replaced. PLAN: In general, Ms. Florez seems to be doing a lot better. We are going to remove the [place] catheter today. We will continue with the gentle IV fluids and the antimicrobial coverage. We will be pending physical therapy evaluation today and we will advise to get Ms. Florez in a chair at least twice per day. cc: Bull Portillo MD
[2018-10-16] MEDS: ARICEPT PO SCH (20:54)
[2018-10-16] MEDS: CRESTOR PO SCH (20:54)
[2018-10-16] MEDS: ROCEPHIN 1 GM in NS 50 ML IV SCH ×2 (20:54→21:00)
[2018-10-17] MEDS: LOVENOX SUBQ SCH (01:50)
[2018-10-17] MEDS: SYNTHROID PO SCH ×2 (05:44→09:29)
[2018-10-17] MEDS ORDERED: VITAMIN D PO SCH (09:00)
[2018-10-17] MEDS: COZAAR PO SCH (09:29)
[2018-10-17] MEDS: NAMENDA PO SCH (09:29)
[2018-10-17] MEDS: ASPIRIN PO SCH (09:29)
[2018-10-17] MEDS: NS 1,000 ML IV SCH (09:29)
--- NOTE | 2018-10-17 14:14 | PROGRESS NOTE ---
DATE: 10/17/2018 SUBJECTIVE: This morning Ms. Florez was sitting up in the chair at the bedside. She was actually taking her lunch. She says she is feeling a whole lot better. OBJECTIVE: Vital Signs: Blood pressure is 115/67, pulse 68, respirations 16, and temperature 97.5 degrees. The patient was saturating 99% on room air. General: On general exam, Ms. Florez is a 77-year-old female. She was sitting up in a chair in no distress. HEENT: Mucosa is pink and moist. Anicteric. Acyanotic. Neck: Supple. Chest: Good air entry bilaterally. There were no crepitations. No rhonchi. Cardiovascular: Regular rate and rhythm. No murmurs, no rubs, no gallops. GI: Abdomen is soft and nontender. Bowel sounds are present. There is no hepatosplenomegaly. Extremities: No pedal edema. Distal pulses are present. BUYER INTERNSHIP: Patient is awake, alert, and oriented to person and to place. Disoriented to time, but she follows basic commands and sustained a rational conversation. LABORATORY DATA: None for today. Patient's urine blood cultures have been 48 hours negative. Urine culture was Klebsiella pneumoniae. I am still awaiting for a physical therapy note. ASSESSMENT: 1. Klebsiella pneumoniae UTI. Patient is currently on ceftriaxone. Today is day 2. Plan for a total of 5 days. 2. Generalized weakness and deconditioning. Patient seems to be doing a whole lot better. We are awaiting physical therapy evaluation. This morning she was seen taking her lunch sitting down. 3. Hypothyroidism. Patient is on levothyroxine supplement. 4. Hypertension and dyslipidemia. Controlled. 5. Dementia presumably Alzheimer's. Patient is on donepezil. 6. Clinical volume depletion improved. PLAN: In general, I think Ms. Florez is doing a whole lot better. We are awaiting physical therapy report today. I understand the family is considering either a rehab or home health or home with home health. I think Ms. Florez will be able to be discharged home tomorrow if all other parameters are stable. However, if physical therapy notes that she is remarkably home for home management, then we will recommend she goes to a rehab. cc: Bull Portillo MD
[2018-10-17] MEDS: ROCEPHIN 1 GM in NS 50 ML IV SCH (21:14)
[2018-10-17] MEDS: CRESTOR PO SCH (21:14)
[2018-10-17] MEDS: ARICEPT PO SCH (21:14)
[2018-10-18] MEDS: LOVENOX SUBQ SCH (06:15)
[2018-10-18] MEDS: SYNTHROID PO SCH (06:15)
[2018-10-18 06:51] LABS: BASO# 0.02 X1000 (0.0-0.2); BASO% 0.4 % (0.0-0.8); EOS# 0.17 X1000 (0.0-0.7); EOS% 3.2 % (0.0-10.0); HEMATOCRIT 41.2 % (37.0-47.0); HEMOGLOBIN 13.7 g/dL (12.0-16.0); LYMPH# 1.16 X1000 (1.2-3.4); LYMPH% 22.1 % (20.5-51.1); MCH 29.7 PG (27-31); MCHC 33.3 g/dL (33-37); MCV 89.2 FL (81-99); MONO# 0.61 X1000 (0.11-0.59); MONO% 11.6 % (1.7-9.3); MPV 10.1 FL (7.4-10.4); NEUT# 3.29 X1000 (1.4-6.5); NEUT% 62.7 % (42.2-75.2); PLT 243 X1000 (130-400); RBC 4.62 XMIL (4.2-5.4); RDW 14.5 % (11.5-14.5); WBC 5.25 X1000 (4.8-10.8)
[2018-10-18 07:12] LABS: AGAP 10; BUN 13 mg/dL (8-22); CALCIUM 9.1 mg/dL (8.8-10.2); CHLORIDE 106 mmol/L (98-107); COSMO 281; CREATININE 0.8 mg/dL (0.5-0.9); ESTIMATED GFR > 60; GLUCOSE 89 mg/dL (70-104); SODIUM 141 mmol/L (136-145); TCO2 25 mmol/L (25-35)
[2018-10-18 07:45] VITALS: BP 124/76
[2018-10-18] MEDS: NAMENDA PO SCH (08:16)
[2018-10-18] MEDS: COZAAR PO SCH (08:17)
[2018-10-18] MEDS: ASPIRIN PO SCH (08:17)
--- NOTE | 2018-10-19 09:13 | DISCHARGE SUMMARY ---
ADMISSION DATE: 10/15/2018 DISCHARGE DATE: 10/18/2018 DISPOSITION: Home. FOLLOWUP: 1. Dr. Garsia. 2. Home health agency. CONSULTATIONS DURING THIS ADMISSION: None. IMAGING STUDIES OF SIGNIFICANCE: 1. A hip x-ray was done, which showed degenerative arthritis on the right. 2. A CT scan of the head and cervical spine showed no evidence of acute disease. 3. A chest x-ray showed stable with hiatal hernia. ADMISSION DIAGNOSES: 1. Urinary tract infection. 2. Increased weakness and decreased ambulation. 3. Hypertension. 4. Dyslipidemia. DISCHARGE DIAGNOSES: 1. Klebsiella pneumoniae urinary tract infection. The patient was on intravenous ceftriaxone. This has been switched to oral Keflex. 2. Generalized weakness and deconditioning. The patient was evaluated by Physical Therapy. She was able to do 40 feet with minimum assistance. Home health has been recommended. The patient has declined on multiple encounters to go to an inpatient rehab. 3. Hypothyroidism. Will continue with thyroid supplement. 4. Hypertension and dyslipidemia. Controlled. 5. Alzheimer's dementia. The patient is on donepezil. 6. Clinical volume depletion on presentation. Improved. 7. Osteoarthritis. Physical therapy recommended. DISCHARGE MEDICATIONS: 1. Aspirin 81 mg daily. 2. Bentyl p.r.n. 3. Donepezil 5 mg p.o. at bedtime. 4. Ergocalciferol 50,000 units p.o. every 7 days. 5. Synthroid 25 mcg p.o. daily. 6. Memantine 5 mg p.o. daily. 7. Crestor 20 mg p.o. at bedtime. 8. Losartan 25 mg p.o. daily. 9. Cephalexin 500 b.i.d. PRESENTING COMPLAINT: Falls. HISTORY OF PRESENTING COMPLAINT: Ms. Florez is a 77-year-old female with a history of dementia, hypertension, and hypothyroidism, who presented to the emergency department because of increased fall and generalized weakness. An initial CT scan was done, which did not show any broken bones or acute disease. The patient's urinalysis was suspicious for infection. She was subsequently admitted for medical care. HOSPITAL COURSE: Ms. Florez was admitted to the medical floor under telemonitoring. She was started on broad-spectrum IV antibiotics. Cultures were done. Ms. Florez was also adequately fluid resuscitated, and her hydration status significantly improved. She was able to get physical therapy during the hospital course. Please refer to the details of physical therapy notes in the chart. Ms. Florez has been consuming about 75% of her meals on a daily basis. During the hospital course, her urine culture came back positive for Klebsiella pneumoniae. Antibiotics were tailored accordingly, and switched to p.o. Blood cultures were 48 hours negative. This morning, Ms. Florez refers to be doing a whole lot better. Denies any complaints. She was eating her breakfast. She tolerated it well. Her vitals have also been reviewed and completely normal. Physical exam is unremarkable. She has repeated her desire to wanting to go home and have PT instead of going to an inpatient rehab. Ms. Florez is believed to be medically stable. She is therefore going to be discharged, and she will follow up with her primary care doctor. All the discharge instructions have been discussed with her, and she voiced understanding. TIME SPENT: Time spent for discharge was 35 minutes. cc: MD Lisa Stevenson MD
== END 2018-10-18 13:59 | disposition home health service (06) | DRG 690 ==
LOC: SUPCPDRO → ED 18:29 → 4N 10-15 01:48 → SUATTDRO 10-15 01:48
PROVIDERS: ATTEND Internal Medicine
CPT/HCPCS: 51701; 70450; 71010; 71045; 72125; 73502; 80048; 80053; 81001; 83605; 84443; 84484; 85025; 87040; 87077; 87088; 87186; 93005; 96365; 97110; 97116; 97162; 97530; 99285; A9270; J0696; J1650; J7030; P9612